=== PATIENT | male | born 1950 | race Caucasian/White ===

== ENCOUNTER 2017-08-01 10:41 | Emergency (ER) | payer OTHER ==
[~2017-08-01] VITALS: Ht 188 cm; Wt 97.5 kg
[2017-08-01 10:53] VITALS: BP_SYST 116
[2017-08-01] MEDS ORDERED: BACITRACIN 1 GM OINT TP ONE (12:09)
== END 2017-08-01 12:36 | disposition home or self-care (01) ==
LOC: SED 10:41
DX: S61.213D Laceration without foreign body of left middle finger without damage to nail, subsequent encounter (principal); S61.215D Laceration without foreign body of left ring finger without damage to nail, subsequent encounter; W45.8XXD Other foreign body or object entering through skin, subsequent encounter
CPT/HCPCS: 99283

== ENCOUNTER 2017-08-07 11:46 | Emergency (ER) | payer OTHER ==
[~2017-08-07] VITALS: Ht 188 cm; Wt 97.5 kg
[2017-08-07 11:51] VITALS: BP_SYST 141
[2017-08-07] MEDS ORDERED: DIPH-TET-PERTUS Vaccine 0.5 ML VIAL (ADACEL) I.M. ONE (12:45)
[2017-08-07] MEDS ORDERED: LIDOCAINE/EPI 1% 1:100000 20 ML VIAL INJ ONE (12:45)
[2017-08-07 13:00] VITALS: BP_SYST 141
== END 2017-08-07 13:00 | disposition home or self-care (01) ==
LOC: SED 11:46
DX: S61.213D Laceration without foreign body of left middle finger without damage to nail, subsequent encounter (principal); S61.215D Laceration without foreign body of left ring finger without damage to nail, subsequent encounter; W45.8XXD Other foreign body or object entering through skin, subsequent encounter
CPT/HCPCS: 99281